=== PATIENT | female | born 1955 | race Caucasian/White ===

== ENCOUNTER 2017-10-22 07:31 | Day surgery (SDC) | payer OTHER ==
[2017-10-21 11:09] LABS: ANION GAP 9.5 mmol/L (8-16); CALCIUM 10.2 mg/dL (8.5-10.1); CARBON DIOXIDE 29.3 mmol/L (21.0-32.0); POTASSIUM - SERUM 4.8 mmol/L (3.5-5.1)
[2017-10-21 11:42] LABS: BASOPHILS 0.8 % (0-2); EOSINOPHILS 2.2 % (0-7); HEMATOCRIT 42.4 % (36.0-48.0); HEMOGLOBIN 13.9 g/dL (12-16); IMMATURE GRANULOCYTES 0.2 % (0-5); LYMPHOCYTES 44.1 % (15-50); MCH 28.8 pg (26.0-34.0); MCHC 32.8 g/dL (31.0-37.0); MEAN PLATELET VOLUME 12.8 fL (7.4-10.4); MONOCYTES 6.3 % (2-11); NEUTROPHILS 46.4 % (40-80); PLATELET COUNT 192 10x3/uL (130-400); RBC 4.82 10x6/uL (4.00-5.40); RDW 13.8 % (11.5-14.5); WBC 4.9 10x3/uL (4.8-10.8)
[~2017-10-22] VITALS: Ht 170.2 cm; Wt 98.6 kg
--- NOTE | ~2017-10-22 | OP ---
PATIENT NAME: AUBRIE MATOS MEDICAL RECORD: [id number] LOCATION:[facility] ADMISSION DATE: SURGEON: MORENO MYERS MD DATE OF OPERATION: 10/22/2017 PREOPERATIVE DIAGNOSES: 1. Internal and external hemorrhoids. 2. Anal skin tags. 3. Anxiety disorder. 4. Hypertension. 5. Hypoglycemia. 6. Supraventricular tachycardia. POSTOPERATIVE DIAGNOSES: 1. Internal and external hemorrhoids. 2. Anal skin tags. 3. Anxiety disorder. 4. Hypertension. 5. Hypoglycemia. 6. Supraventricular tachycardia. PROCEDURE: 1. Anal exam under anesthesia. 2. BPH stapled hemorrhoidectomy. SURGEON: Moreno Myers MD REPORT OF PROCEDURE: The patient was placed in the jackknife prone position and the perianal region was prepped and draped in sterile fashion. A Jigar-[place] anoscope was used to inspect the anal orifice. The patient had mixed internal and external hemorrhoids, which were fairly small in nature. There was a lot of friability to the anterior hemorrhoids. The patient had no sign of a fissure, mass, or lesion. A PPH anoscope was inserted and sutured down on all 4 sides using interrupted 3-0 silks. The pursestring was made just proximal to the dentate line using a running 2-0 Prolene. The PPH anoscope was inserted and fired. There was a good ring of tissue that was removed. We inspected the staple ring at that point and saw there was no sign of any active bleeding. We irrigated out the rectum thoroughly with normal saline. We then instilled a piece of Gelfoam dipped in [place]. COMPLICATIONS: None. CONDITION: Stable. ANESTHESIA: General endotracheal and topical. BLOOD LOSS: Minimal. TRANSINT:[id number] Voice Confirmation ID: [id number] DOCUMENT ID: [id number] OPERATIVE REPORT [id number] MATOSAUBRIE MORENO HOWE MD at 1031 CC: [id number] DICTATION DATE: 10/22/17 1008 [employer] GENERATOR MANAGER: 10/22/17 1418 [facility] 10/22/17 [place] [address]
[~2017-10-22 07:31] MED LIST: DIOVAN80 MG PO; LEXAPRO10 MG PO
[2017-10-22 07:58] VITALS: BP 128/79; Ht 170.2 cm; Wt 98.6 kg
[2017-10-22] MEDS ORDERED: HYDROCODONE-APA1 TAB PO (10:03)
== END 2017-10-22 12:45 | disposition home or self-care (01) ==
LOC: D.OPS 07:31
PROVIDERS: Surgery
DX: K64.8 Other hemorrhoids (principal); K64.4 Residual hemorrhoidal skin tags; F41.9 Anxiety disorder, unspecified; I10 Essential (primary) hypertension; E16.2 Hypoglycemia, unspecified; I47.1 Supraventricular tachycardia; Z01.812 Encounter for preprocedural laboratory examination

== ENCOUNTER 2017-12-01 20:17 | Emergency (ER) | payer OTHER ==
[~2017-12-01] VITALS: Ht 170.2 cm; Wt 102.7 kg
[~2017-12-01 20:17] MED LIST changes: +HYDROCODONE-APA1 TAB PO
[2017-12-01] MEDS ORDERED: FISH OIL 1,2001 CAP PO (20:27)
[2017-12-01] MEDS ORDERED: VITAMIN B-1250 MCG PO (20:27)
[2017-12-01] MEDS ORDERED: VITAMIN D2000 UNIT PO (20:27)
[2017-12-01] MEDS ORDERED: VOLTAREN75 MG PO (21:38)
== END 2017-12-01 22:38 | disposition home or self-care (01) ==
LOC: D.ER 20:17
DX: S99.921A Unspecified injury of right foot, initial encounter (principal); W20.8XXA Other cause of strike by thrown, projected or falling object, initial encounter; Y93.89 Activity, other specified; Y92.019 Unspecified place in single-family (private) house as the place of occurrence of the external cause; M79.671 Pain in right foot